=== PATIENT | male | born 1975 | race Caucasian/White ===

== ENCOUNTER 2016-10-11 13:59 | Inpatient (IN) | payer MEDICAID, OTHER ==
[~2016-10-11] VITALS: Ht 157.5 cm; Wt 94.5 kg
[~2016-10-11 13:59] MED LIST: ASPI-664 PO; ATOR40TA68 PO; LISI10TA2 PO; METO-429 PO; NIT4 SL; TICA90TA PO
[2016-10-11 14:01] VITALS: Ht 157.5 cm; Wt 94.5 kg
[2016-10-11] MEDS ORDERED: ASPIRIN 325 MG TAB PO STA (14:34)
[2016-10-11 14:55] LABS: WHITE BLOOD COUNT 7.4 10^3/ul (4.8-10.8)
[2016-10-11 14:56] LABS: BASOPHILS % 0.1 % (0.0-2.0); EOSINOPHILS # 0.1 10^3/ul (0.0-0.5); EOSINOPHILS % 1.6 % (0.0-7.0); LYMPHOCYTES # 2.2 10^3/ul (0.8-2.9); LYMPHOCYTES % 29.7 % (15.0-51.0); MEAN CORPUSCULAR HEMOGLOBIN 29.7 pg (29.0-33.0); MEAN CORPUSCULAR HGB CONC 34.1 g/dl (32.0-37.0); MEAN PLATELET VOLUME 10.7 fl (7.4-10.4); MONOCYTE # 0.7 10^3/ul (0.3-0.9); MONOCYTES % 8.8 % (0.0-11.0); NEUTROPHIL # 4.4 10^3/ul (1.6-7.5); NEUTROPHILS % 59.4 % (39.0-77.0); PLATELET COUNT 195 10^3/UL (140-415); RED BLOOD COUNT 4.71 10^6/ul (4.70-6.10); RED CELL DISTRIBUTION WIDTH 12.9 % (11.5-14.5)
[2016-10-11] MEDS ORDERED: LISI40TA9 PO (15:02)
[2016-10-11] MEDS ORDERED: ATOR40TA68 PO (15:02)
[2016-10-11] MEDS ORDERED: METO100T13 PO (15:03)
[2016-10-11] MEDS ORDERED: RANO10002 PO (15:03)
--- NOTE | 2016-10-11 15:03 | RADRPT ---
PROCEDURE: XR Chest. CLINICAL INDICATION: chest pain TECHNIQUE: Single frontal view of the chest was obtained COMPARISON: 09/13/15 FINDINGS: The heart and mediastinum are within normal limits. The lungs are clear. There is no pleural effusion or pneumothorax. RPTAT: AA IMPRESSION: No acute disease. .Brendan Walker MD, MD Date Time Electronically viewed and signed by .Brendan Walker MD, on 10/11/2016 15:03 .S/
[2016-10-11 15:14] LABS: ANION GAP 20 (8-16); BLOOD UREA NITROGEN 16 mg/dl (7-20); CALCIUM 9.5 mg/dl (8.4-10.2); CARBON DIOXIDE 24 mmol/L (21-31); CHLORIDE 102 mmol/L (97-110); CREATININE 0.88 mg/dl (0.61-1.24); GLUCOSE 97 mg/dl (70-220); INR 0.99; POTASSIUM 4.3 mmol/L (3.5-5.1); PROTIME 13.1 Sec (12.2-14.2); SODIUM 142 mmol/L (135-144)
[2016-10-11 15:15] LABS: PARTIAL THROMBOPLASTIN TIME 29.3 Sec (25.0-35.0)
[2016-10-11 15:26] LABS: TROPONIN-I < 0.012 ng/ml (0.00-0.12)
--- NOTE | 2016-10-11 15:38 | ERA ---
ER Documentation Chief Complaint Date/Time DATE: 10/11/16 TIME: 15:31 Chief Complaint Complains of chest pain Hx stent last year HPI This is a 40-year-old male with a past medical history of coronary artery disease and previous myocardial infarction status post catheterization and stenting approximately 1 year ago, hypertension, hyperlipidemia who is presenting with recurrence of chest pain. The patient reports that his pain feels exactly like his previous heart attack. It started yesterday evening after eating a barbecue chicken dinner. It has not remitted. It is a sharp left-sided chest pain radiating to the left arm. He has not had any lightheadedness or dizziness. He has not had any diaphoresis. He has had shortness of breath. The patient is on Brilinta for his stent. He has been taking this compliantly. The patient has not been sick recently. He denies any fever or chills. He denies any nausea or vomiting. He denies any abdominal pain. He has no focal deficits. ROS All systems reviewed and are negative except as per history of present illness. Medications Home Meds Active Scripts Ticagrelor* (Brilinta*) 90 Mg Tablet, 90 MG PO BID for 30 Days, #60 TAB Prov:DONNELL GONZALES MD 09/16/15 Aspirin* (Aspirin* EC) 81 Mg Tablet.dr, 81 MG PO DAILY for 30 Days, #30 Prov:DONNELL GONZALES MD 09/16/15 Reported Medications Ranolazine* (Ranexa*) 1,000 Mg Tab.sr.12h, 1000 MG PO Q12, TAB 10/11/16 Metoprolol Succinate* (Toprol XL*) 100 Mg Tab.sr.24h, 100 MG PO QHS, #30 TAB 10/11/16 Lisinopril* (Lisinopril*) 40 Mg Tablet, 40 MG PO DAILY, #30 TAB 10/11/16 Atorvastatin* (Atorvastatin*) 40 Mg Tablet, 40 MG PO QHS, #30 TAB 10/11/16 Discontinued Scripts Nitroglycerin* (Nitrostat*) 0.4 Mg Tab.subl, 1 TAB SL Q5M Y for ANGINA for 30 Days, #30 Prov:DONNELL GONZALES MD 09/16/15 Metoprolol Tartrate* (Lopressor*) 50 Mg Tab, 100 MG PO BID for 30 Days, #60 TAB Prov:DONNELL GONZALES MD 09/16/15 Lisinopril* (Lisinopril*) 10 Mg Tablet, 10 MG PO DAILY for 30 Days, #30 TAB Prov:DONNELL GONZALES MD 09/16/15 Atorvastatin* (Atorvastatin*) 40 Mg Tablet, 40 MG PO DAILY for 30 Days, #30 TAB Prov:DONNELL GONZALES MD 09/16/15 Allergies Allergies: Coded Allergies: No Known Allergy (Unverified , 10/11/16) PMhx/Soc History of Surgery: No (denies) Anesthesia Reaction: No Hx Neurological Disorder: No Hx Respiratory Disorders: No Hx Cardiac Disorders: Yes (Coronary artery disease, hypertension, hyperlipidemia, previous catheterization and stenting) Hx Psychiatric Problems: No Hx Miscellaneous Medical Probl: No (denies but stated he smokes 2 packs of cigarettes a day) Hx Alcohol Use: Yes (vodka occationally) Hx Substance Use: No Hx Tobacco Use: No Smoking Status: Heavy tobacco smoker FmHx Family History: No coronary disease, No diabetes Physical Exam Vitals Vital Signs Date Time Temp Pulse Resp B/P Pulse Ox O2 Delivery O2 Flow Rate FiO2 10/11/16 16:44 71 20 119/88 99 Room Air 10/11/16 14:46 Nasal Cannula 2 10/11/16 14:01 98.3 68 20 147/93 99 Physical Exam Const: No apparent distress Head: Atraumatic Eyes: Normal Conjunctiva ENT: Normal External Ears, Nose and Mouth. Neck: Full range of motion..~ No meningismus. Resp: Clear to auscultation bilaterally Cardio: Regular rate and rhythm, no murmurs Abd: Soft, non tender, non distended. Normal bowel sounds Skin: No petechiae or rashes Back: No midline or flank tenderness Ext: No cyanosis, or edema Neur: Awake and alert Psych: Normal Mood and Affect Result Diagram: 10/11/16 1440 10/11/16 1440 Results 24 hrs Laboratory Tests Test 10/11/16 14:40 White Blood Count 7.410^3/ul Red Blood Count 4.7110^6/ul Hemoglobin 14.0g/dl Hematocrit 41.0% Mean Corpuscular Volume 87.0fl Mean Corpuscular Hemoglobin 29.7pg Mean Corpuscular Hemoglobin Concent 34.1g/dl Red Cell Distribution Width 12.9% Platelet Count 16770^3/UL Mean Platelet Volume 10.7fl Neutrophils % 59.4% Lymphocytes % 29.7% Monocytes % 8.8% Eosinophils % 1.6% Basophils % 0.1% Nucleated Red Blood Cells % 0.0/100WBC Neutrophils # 4.410^3/ul Lymphocytes # 2.210^3/ul Monocytes # 0.710^3/ul Eosinophils # 0.110^3/ul Basophils # 0.010^3/ul Nucleated Red Blood Cells # 0.010^3/ul Prothrombin Time 13.1Sec Prothrombin Time Ratio 1.0 INR International Normalized Ratio 0.99 Activated Partial Thromboplast Time 29.3Sec Sodium Level 142mmol/L Potassium Level 4.3mmol/L Chloride Level 102mmol/L Carbon Dioxide Level 24mmol/L Anion Gap 20 Blood Urea Nitrogen 16mg/dl Creatinine 0.88mg/dl Glucose Level 97mg/dl Calcium Level 9.5mg/dl Troponin I < 0.012ng/ml Current Medications Medications (Trade) Dose Ordered Sig/Jaime Route PRN Reason Start Time Stop Time Status Last Admin Dose Admin Aspirin 325 mg 325 mg ONCE STAT PO 10/11/16 14:34 10/11/16 14:37 DC 10/11/16 14:55 Dextrose/Sodium Chloride (D5-NS) 1,000 ml @ 75 mls/hr [id number] IV 10/11/16 18:00 Ondansetron HCl (Zofran Inj) 4 mg ER BRIDGE PRN IV NAUSEA AND/OR VOMITING 10/11/16 18:00 10/12/16 17:59 Acetaminophen (Tylenol Tab) 650 mg ER BRIDGE PRN PO MILD PAIN/FEVER 10/11/16 18:00 10/12/16 17:59 Procedures/MDM The patient's presentation warrants a cardiac workup. I do have a high suspicion for a cardiac etiology given his current symptoms as well as the fact that he presented similarly one year ago indicates that required stenting at that time. Patient's blood work was obtained and reviewed. The patient CBC, BMP, troponin and INR were unremarkable. The patient's chest x-ray demonstrated no active disease in the chest. There are no signs of pneumothorax, no consolidation or opacity concerning for pneumonia, no pleural effusion, no obvious signs of pulmonary edema. The patient has a normal cardiomediastinal silhouette. EKG read by me: Rate/Rhythm: Regular rate and rhythm at a rate of 69 Intervals: Normal Access: Normal Impression: No ST or T-wave changes concerning for an acute STEMI. There are nonspecific repolarization abnormalities. No evidence of acute ischemia or arrhythmia I would place his heart score at 5 for risk factors, high suspicion and nonspecific repolarization abnormalities. This would place him at moderate risk , which requires admission for a repeat cardiac workup. The patient was given aspirin in the emergency department. The patient was evaluated by his machinist first class in the emergency department today. The machinist first class reports that he has had a recent positive stress test and needs to have a catheterization performed. At this time, I do not feel that the patient is stable for transfer given the elevated risk of decompensation en route. Departure Condition: BARBARA Crawford MD Oct 11, 2016 15:38
--- NOTE | 2016-10-11 17:46 | CONS ---
Date/Time of Note Date/Time of Note DATE: 10/11/16 TIME: 17:38 Assessment/Plan Assessment/Plan Chief Complaint/Hosp Course 1. ACS 2. HTN 3. CAD 4. HX PCI LAD 5. Known multivessel CAD and abnormal stress test but now with recurrent angina 6. dyslipidemia 7.smoker 8. obesity Recommendations: Continue home medication including aspirin and Brilinta statin and beta- blockers. Rule out for myocardial infarction with serial cardiac enzyme Echocardiogram will be checked in the morning Plan for left heart catheterization coronary angiogram possible percutaneous coronary intervention tomorrow. Risks benefits alternatives of procedure discussed with the patient and his in detail. Risks include not limited to infection vascular complication bleeding complications MS stroke arrhythmia at that renal failure etc. discussed with patient and his in detail. Patient consented to procedure. Thank you for his referral I will continue to follow along with you. Problems: Consultation Date/Type/Reason Admit Date/Time Date of Consultation: Oct 11, 2016 Type of Consultation: INTERVENTIONAL CARDIOLOGY Reason for Consultation CHEST PAIN Thank you for this referral This is a pleasant 38-year-old gentleman so coronary artery disease status post PCI of the LAD diffuse multivessel coronary artery disease, smoking, hypertension who presented to the emergency room with complaint of chest pain. Patient has had PCI with LAD a few months ago and had done well. However recently has had increasing exertional chest pain pressure to the left side. She had a stress test done by myself in the office a few couple of weeks ago which was abnormal. He has been placed on appropriate medical therapy including Ranexa beta-jose angel and has been compliant with his medications. With the medication his pain has improved however he still gets chest pain upon exertion. Today the pain got worse he decided to come to the emergency room. He has been in the waiting care to be scheduled for a coronary angiogram once authorization is obtained. At this point he is chest pain-free. Discussed with his his old records were reviewed.. Medication: Aspirin 81 mg p.o. daily, Brilinta 90 mg p.o. twice daily, Toprol-XL , Lipitor, Ranexa 1000 mg p.o. twice daily Social history patient still smokes. Still states that he quit a couple of weeks now Family history positive early coronary artery disease Allergies no reported drug allergies Past medical history 1. Coronary artery disease status post PCI of his LAD known diffuse multivessel coronary artery disease #2 hypertension 3. Dyslipidemia 4. Smoking 5. Obesity Past surgical history: On 09/15/2015 he underwent PCI of the LAD. His coronary angiogram showed: 1. Left main coronary is a large vessel, appeared to be normal. 2. Left anterior descending artery proximally is a very large vessel, has about 50% stenosis. Multiple diagonals. At the mid-level there is a subtotal 99% lesion. After successful PTCA stent of this lesion, there was no significant residual stenosis left. Diagonal also have about 70% stenosis proximally into the ostium. The left circumflex artery is a large codominant vessel. Obtuse marginal is aneurysmal vessel with about 50% stenosis. 3. Right coronary artery is a moderate-sized vessel. It is codominant, it gives to PDA. It is diffusely diseased and has probably up to 70% lesion, but it has very diffuse disease, multiple areas. Review of system: He denies all except for above-mentioned. Social History Smoking Status: Heavy tobacco smoker Exam/Review of Systems Vital Signs Vitals Vital Signs Date Time Temp Pulse Resp B/P Pulse Ox O2 Delivery O2 Flow Rate FiO2 10/11/16 14:46 Nasal Cannula 2 10/11/16 14:01 98.3 68 20 147/93 99 Exam General: no acute distress HEENT: NC/AT. pupils are equal. round. NECK: NO JVD. no stridor. CV: RRR. systolic murmur; no gallop or rubs. PULM: no wheezing or rhonchi. GI: SOFT, NT, ND, no rebound or guarding . obese Extremity: trace B/L LE edema. no clubbing. neuro: awake and alert, OX3. Psych: calm and pleasant rectal: deferred : normal EKG shows normal sinus rhythm normal ECG Results Result Diagram: 10/11/16 1440 10/11/16 1440 Results 24 hrs Laboratory Tests Test 10/11/16 14:40 White Blood Count 7.4 # Red Blood Count 4.71 Hemoglobin 14.0 Hematocrit 41.0 L Mean Corpuscular Volume 87.0 Mean Corpuscular Hemoglobin 29.7 Mean Corpuscular Hemoglobin Concent 34.1 Red Cell Distribution Width 12.9 Platelet Count 195 Mean Platelet Volume 10.7 #H Neutrophils % 59.4 Lymphocytes % 29.7 Monocytes % 8.8 Eosinophils % 1.6 Basophils % 0.1 Nucleated Red Blood Cells % 0.0 Neutrophils # 4.4 Lymphocytes # 2.2 Monocytes # 0.7 Eosinophils # 0.1 Basophils # 0.0 Nucleated Red Blood Cells # 0.0 Prothrombin Time 13.1 Prothrombin Time Ratio 1.0 INR International Normalized Ratio 0.99 Activated Partial Thromboplast Time 29.3 Sodium Level 142 Potassium Level 4.3 Chloride Level 102 Carbon Dioxide Level 24 Anion Gap 20 H Blood Urea Nitrogen 16 Creatinine 0.88 Glucose Level 97 Calcium Level 9.5 Troponin I < 0.012 JULIENNE MITCHELL MD Oct 11, 2016 17:46
[2016-10-11] MEDS ORDERED: ONDANSETRON 4 MG INJ IV PRN (18:00)
[2016-10-11] MEDS ORDERED: ACETAMINOPHEN 325 MG TAB PO PRN ×2 (18:00→18:30)
--- NOTE | 2016-10-11 18:27 | HP ---
Date/Time of Note Date/Time of Note DATE: 10/11/16 TIME: 18:23 Assessment/Plan VTE Prophylaxis VTE Prophylaxis Intervention: SCD's Lines/Catheters IV Catheter Type (from Nrsg): Saline Lock Assessment/Plan Assessment/Plan 40 yo M with hx CAD sp PCI presents with chest pain in setting of recent + stress test. Concern for unstable angina plan cont tele monitoring, cardiac cath in AM cont home meds with DAPT, bb, acei, statin, and Ranexa IVFs as per cardiology check a1c check nocturnal pulse ox as CARINE screen pt congratulated on having already quit smoking DVT prophx dispo as per cardiology HPI/ROS Admit Date/Time Admit Date/Time Hx of Present Illness CC chest pain HPI 40 yo M with pmhx CAD sp PCI within the past 12 mos, tobacco abuse, snoring, obesity presents with 1 day of chest pain. Since presentation to the ER pt already seen by his broadcast designer who stated he will be performing diagnostic angiogram in the AM as pt with recent hx of + stress test. PMH/Family/Social Past Medical History CAD sp PCI obesity tobacco abuse Social History , quit smoking 2 weeks ago Smoking Status: Heavy tobacco smoker Exam/Review of Systems Vital Signs Vitals Vital Signs Date Time Temp Pulse Resp B/P Pulse Ox O2 Delivery O2 Flow Rate FiO2 10/11/16 16:44 71 20 119/88 99 Room Air 10/11/16 14:46 2 10/11/16 14:01 98.3 Exam Exam nad, laying in bed MMM EOMI rrr no mrg lungs clear abd soft no rashes no le edema labs and imaging reviewed Labs Result Diagram: 10/11/16 1440 10/11/16 1440 Medications Medications Current Medications Dextrose/Sodium Chloride (D5-NS) 1,000 ml @ 75 mls/hr [id number] IV ; Start at 18:00 Aspirin (Aspirin) 81 mg DAILY PO ; Start 10/12/16 at 09:00; Status UNV Acetaminophen (Tylenol Tab) 650 mg Q6H PRN PO PAIN LEVEL 1-3 OR FEVER; Start at 18:30; Status UNV Acetaminophen/ Hydrocodone Bitart ([place] (5/325)) 1 tab Q6H PRN PO PAIN LEVEL 4 -6; Start 10/11/16 at 18:30; Status UNV Morphine Sulfate (morphine) 2 mg Q4H PRN IV PAIN LEVEL 7-10; Start 10/11/16 at 18:30; Status UNV Docusate Sodium (Colace) 100 mg Q12H PRN PO CONSTIPATION; Start 10/11/16 at 18: 30; Status UNV Magnesium Hydroxide (Milk Of Mag) 30 ml DAILY PRN PO CONSTIPATION; Start at 18:30; Status UNV Bisacodyl (Dulcolax) 5 mg DAILY PRN PO CONSTIPATION; Start 10/11/16 at 18:30; Status UNV Enoxaparin Sodium (Lovenox) 40 mg DAILY SC ; Start 10/12/16 at 09:00; Status UNV CHRIS HENRY MD Oct 11, 2016 18:27
[2016-10-11] MEDS ORDERED: BISACODYL (EC) 5 MG TAB PO PRN (18:30)
[2016-10-11] MEDS ORDERED: NACL 0.9% 3 ML SYG IV SCH (18:30)
[2016-10-11] MEDS ORDERED: morphine 2 MG INJ IV PRN (18:30)
[2016-10-11] MEDS ORDERED: HYDROCODONE/APAP (5/325) TAB PO PRN (18:30)
[2016-10-11] MEDS ORDERED: MAGNESIUM HYDROXIDE 30ML CUP PO PRN (18:30)
[2016-10-11] MEDS ORDERED: DOCUSATE SODIUM 100 MG CAP PO PRN (18:30)
[2016-10-11 20:00] VITALS: BP 123/85; RESP 15
[2016-10-11 20:40] VITALS: PULSE 64
[2016-10-11 20:43] LABS: CREATINE KINASE 96 IU/L (23-200)
[2016-10-11 20:58] LABS: CK-MB 0.89 ng/ml (0.0-2.4); TROPONIN-I < 0.012 ng/ml (0.00-0.12)
[2016-10-11] MEDS: METOPROLOL (XL) 100 MG TAB PO SCH (21:00)
[2016-10-11] MEDS: TICAGRELOR 90 MG TABLET PO SCH (21:00)
[2016-10-11] MEDS: RANOLAZINE (SR) 500 MG TAB PO SCH (21:24)
[2016-10-11] MEDS: ATORVASTATIN 40 MG TAB PO SCH (21:24)
[2016-10-11] MEDS: DEXTROSE 5%-0.9% NACL 1,000 ML IV SCH (21:28)
[2016-10-12] VITALS (40 sets, daily range): BP systolic 98–129; BP diastolic 64–95; PULSE 45–73; RESP 7–25
[2016-10-12 03:57] LABS: CREATINE KINASE 74 IU/L (23-200)
[2016-10-12 04:39] LABS: CK-MB 0.72 ng/ml (0.0-2.4); TROPONIN-I < 0.012 ng/ml (0.00-0.12)
[2016-10-12] MEDS: DEXTROSE 5%-0.9% NACL 1,000 ML IV SCH (07:16)
[2016-10-12] MEDS: RANOLAZINE (SR) 500 MG TAB PO SCH ×3 (08:36→21:16)
[2016-10-12] MEDS: TICAGRELOR 90 MG TABLET PO SCH ×2 (08:37→21:18)
[2016-10-12] MEDS: ASPIRIN 81 MG TAB PO SCH (08:38)
[2016-10-12] MEDS: ENOXAPARIN 40 MG/0.4 ML SYG SC SCH (08:38)
[2016-10-12] MEDS: LISINOPRIL 20 MG TAB PO SCH ×2 (08:38→09:00)
[2016-10-12] MEDS ORDERED: ASPIRIN (EC) 81 MG TAB PO SCH (09:00)
--- NOTE | 2016-10-12 10:25 | RADRPT ---
Echocardiogram Report Patient Name: YAS CROWELL Gender: Male Date: 1975 Study Date: 12-Oct-2016 Red Lead Burner: Karen Garcia [facility] Location: [id number] Ref. Physician: JULIENNE HUANG Quality: Good Procedures: Transthoracic echocardiogram with complete 2D, M-Mode, and doppler examination. Indications: Acute Coronary Syndrome. 2D/M Mode Doppler Measurement Value Normal Ranges Measurement Value Normal Ranges LVIDd 2D 4.8 3.5 - 5.6 cm AV Peak Tuan 1.5 m/sec LVIDs 2D 3.1 2.1 - 4.1 cm AV Peak PG 9.0 mmHg FS 2D 36.0 % LVOT Peak Tuan 1.2 m/sec LVPWd 2D 1.1 0.6 - 1.1 cm LVOT Peak PG 5.0 mmHg IVSd 2D 1.0 0.6 - 1.1 cm MV E Peak Tuan 1.3 m/sec IVS/LVPW 2D 0.9 MV A Peak Tuan 0.6 m/sec AoR Diam 2D 3.5 2.0 - 3.7 cm MV E/A 2.2 LA/Ao 2D 1 0 - 1 MV Decel Time 165 msec EDV 2D 111.0 cm3 MV E/A 2.2 ESV 2D 29.2 cm3 TR Peak Tuan 2.7 m/sec LA Dimen 2D 3.9 2.3 - 4.0 cm TR Peak PG 29.0 mmHg RVSP 39.0 mmHg Findings Left Ventricle: Normal left ventricular systolic function. Normal left ventricular cavity size. Normal left ventricular wall thickness. Ejection fraction is visually estimated at 55 - 60 %. Tissue Doppler/Mitral Doppler indices are consistent with impaired relaxation (Stage I diastolic dysfunction). Right Ventricle: Normal right ventricular size. Normal right ventricular systolic function. Left Atrium: The left atrium is normal in size. Right Atrium: The right atrium is normal in size. Mitral Valve: Mitral valve leaflets appear mildly thickened. Mild mitral annular calcification. Mild mitral valve regurgitation. Aortic Valve: Normal appearance of the aortic valve. No significant aortic stenosis or insufficiency. Tricuspid Valve: Normal appearance of the tricuspid valve. Estimated peak PA systolic pressure 32 mmHg. There is mild tricuspid regurgitation. Pulmonic Valve: Pulmonic valve not well visualized. Pericardium: Normal pericardium with no significant pericardial effusion. Aorta: Normal aortic root. IVC: Normal size and normal respiratory collapse consistent with normal right atrial pressure. Conclusions 1.Normal left ventricular systolic function. Normal left ventricular cavity size. Normal left ventricular wall thickness. Ejection fraction is visually estimated at 55 - 60 %. Tissue Doppler/Mitral Doppler indices are consistent with impaired relaxation (Stage I diastolic dysfunction). 2.Mitral valve leaflets appear mildly thickened. Mild mitral annular calcification. Mild mitral valve regurgitation. 3.Normal appearance of the aortic valve. No significant aortic stenosis or insufficiency. 4.Normal appearance of the tricuspid valve. Estimated peak PA systolic pressure 32 mmHg. There is mild tricuspid regurgitation. Electronically Signed By: Julienne Huang 12-Oct-2016 10:24:46 -0700 Patient Name: YAS CROWELL Study Date: 12-Oct-2016 [id number]
[2016-10-12 10:44] LABS: BASOPHILS % 0.1 % (0.0-2.0); EOSINOPHILS # 0.1 10^3/ul (0.0-0.5); EOSINOPHILS % 1.3 % (0.0-7.0); HEMATOCRIT 39.2 % (42.0-52.0); HEMOGLOBIN 13.1 g/dl (14.0-18.0); LYMPHOCYTES % 27.7 % (15.0-51.0); MEAN CORPUSCULAR HEMOGLOBIN 29.5 pg (29.0-33.0); MEAN CORPUSCULAR HGB CONC 33.4 g/dl (32.0-37.0); MEAN CORPUSCULAR VOLUME 88.3 fl (82.0-101.0); MEAN PLATELET VOLUME 10.9 fl (7.4-10.4); MONOCYTE # 0.6 10^3/ul (0.3-0.9); MONOCYTES % 7.9 % (0.0-11.0); NEUTROPHIL # 4.4 10^3/ul (1.6-7.5); NEUTROPHILS % 62.4 % (39.0-77.0); PLATELET COUNT 179 10^3/UL (140-415); RED BLOOD COUNT 4.44 10^6/ul (4.70-6.10); RED CELL DISTRIBUTION WIDTH 12.8 % (11.5-14.5); WHITE BLOOD COUNT 7.1 10^3/ul (4.8-10.8)
[2016-10-12 11:06] LABS: ALBUMIN 3.8 g/dl (3.3-4.9); ALBUMIN/GLOBULIN RATIO 1.8; BILIRUBIN,INDIRECT 0.4 mg/dl (0-1.1); BILIRUBIN,TOTAL 0.4 mg/dl (0.2-1.3); CALCIUM 9.2 mg/dl (8.4-10.2); CHOL/HDL RATIO 3.5 RATIO; CREATININE 0.95 mg/dl (0.61-1.24); MAGNESIUM 1.9 mg/dl (1.7-2.5); POTASSIUM 4.5 mmol/L (3.5-5.1); TOTAL PROTEIN 5.9 g/dl (6.1-8.1)
[2016-10-12 11:07] LABS: CREATINE KINASE 63 IU/L (23-200)
[2016-10-12 11:09] LABS: INR 1.02; PROTIME 13.4 Sec (12.2-14.2)
[2016-10-12 11:28] LABS: CK-MB 0.53 ng/ml (0.0-2.4); TROPONIN-I < 0.012 ng/ml (0.00-0.12)
[2016-10-12 11:37] LABS: THYROID STIMULATING HORMONE 1.33 MIU/L (0.465-4.680)
[2016-10-12 11:41] LABS: CHOL/HDL RATIO 3.5 RATIO
[2016-10-12] MEDS ORDERED: IODIXANOL LOCM 100 ML BTL ONE (12:00)
[2016-10-12] MEDS ORDERED: MIDAZOLAM 1 MG/ML 2 ML INJ ONE (12:00)
[2016-10-12] MEDS ORDERED: FENTAnyl 50 MCG/ML VIAL ONE ×2 (12:01→13:39)
[2016-10-12] MEDS ORDERED: NITROGLYCERIN (IC) 100 MCG/ML INJ ONE (12:04)
[2016-10-12] MEDS ORDERED: IOHEXOL 350MG/ML 50 ML BTL ONE (12:04)
[2016-10-12] MEDS ORDERED: BIVALIRUDIN 250MG /NS 50 ML 50 ML IVPB ONE (12:04)
[2016-10-12] MEDS ORDERED: LIDOCAINE 1% (MDV) 20 ML INJ ONE (12:04)
[2016-10-12] MEDS ORDERED: HEPARIN 1000 UNITS/ML 10 ML INJ ONE (12:36)
[2016-10-12] MEDS ORDERED: VERAPAMIL 5 MG INJ ONE (12:36)
--- NOTE | 2016-10-12 14:11 | OPR ---
Date/Time of Note Date/Time of Note DATE: 10/12/16 TIME: 14:03 Operative Report Procedure Date: Oct 12, 2016 Operative\Procedure Findings Sausage Maker: Julienne Huang MD Indication: ACS. recurrent chest pain and abnormal stress echo Procure performed: #1 left heart catheterization and selective right and left coronary angiogram. #2 Right femoral angiogram and closure using a perclose device 3. Successful PTCA and stenting of proximal LAD using a 4X16 mm synergy NEGAR 4. Successful PTCA of diagonal from 100% --> 0% using a 2.0x15 mm balloon 4. Moderate sedation for more than 90 minutes Findings: 1. Left main: is normal and birfurcates to LAD & LCX. 2. LAD: is large and aneurysmal. it has 80-90% stenosis at proximal LAD ( ----> 0% post PCI). and 20 % instent stenosis at mid LAD. first diagonal is small and 100% occluded ---> 0% post PTCA. 2nd and 3rd diagonal have less than 50% stenosis. 3. Left circumflex artery: is Co-dominant. it has 60-70 % stenosis at OM. It is very aneurysmal though. 4. RCA: is CO-dominant. it has diffuse disease up to 70% stenosis at mid to distal level. No significant change was noted compared to the previous angiogram or year ago. 5. LVEDP is 17 with non significant gradient across the aortic valve. Procedure in detail: Written informed consent with obtained after risks benefits and alternatives discussed with the patient in detail. risks including but not limited to risk of infection vascular complications, bleeding complications, SC stroke arrhythmia renal failure at even were discussed with the patient in detail. Patient was brought into the cardiac laborer aquatic life and placed in supine position. Right and left groin area was prepped and draped in regular sterile fashion and then he was in anesthetized using 1% lidocaine. Right femoral artery was cannulated and using modified seldinger technique a 6 [place] sheath was placed in the right femoral artery. Right femoral angiogram was performed. JL4 catheter was advanced and engaged into the left main coronary artery and angiographic view was obtained. The JR4 catheter was advanced and engaged right coronary artery angiographic view was obtained. Pigtail was advanced to engage the left ventricle hemodynamics as recorded by pullback aortic pressure was measured. At this time we decided to perform PCI of the LAD. A XB LAD 4 guiding head was advanced to engage the left anterior descending artery. BMW wire was used and advanced across the lesion and placed distal to the artery. Another BMW wire were used with a support of the balloon was able to cross the diagonal lesion and placed in distal diagonal. Then I used a 2.0 x 50 mm balloon angioplasty of diagonal lesion was performed. I used a 3 x 12 mm noncompliant balloon which was placed across the LAD lesion and predilated the vessel. Then I used a 4.0 x 16 mm Synergy drug-eluting stent which was placed across the lesion and deployed at 16 [place]. Finally a 4.5 x 8 mm noncompliant balloon was used and postdilated the stent and up to 16 [place]. Final angiographic view was obtained which showed JENNIFER-3 flow no evidence of dissection and no significant residual stenosis at the site of the stent. perclose was successfully deployed. Patient tolerated the procedure well with no complication. Patient was transferred to ICU in stable condition. Conclusions: 1. Successful PTCA stenting of the proximal left anterior descending artery from 90% stenosis to no significant residual stenosis using a 4.0 x 16 mm Synergy drug-eluting stent. 2. Successful PTCA of diagonal 400% occlusion to no significant residual stenosis using a 2.0 x 50 mm balloon. Recommendations: Aggressive medical therapy. aspirin indefinitely dual antiplatlet therapy with Brilinta and aspirin ICU care overnight. JULIENNE HUANG MD Oct 12, 2016 14:11
--- NOTE | 2016-10-12 14:23 | CONS ---
Date/Time of Note Date/Time of Note DATE: 10/12/16 TIME: 14:21 Consult Date/Type/Reason Admit Date/Time Oct 11, 2016 at 17:50 Initial Consult Date 10/11/16 Type of Consultation: INTERVENTIONAL CARDIOLOGY Subjective Discussed with the staff and discussed with Dr. Yi. Patient with no chest pain pressure overnight. Underwent diagnostic angiography and PCI of his LAD by myself. Has some groin discomfort but no active bleeding. OBJECTIVE: General: no acute distress HEENT: NC/AT. pupils are equal. round. NECK: NO JVD. no stridor. CV: RRR. systolic murmur; no gallop or rubs. PULM: no wheezing or rhonchi. GI: SOFT, NT, ND, no rebound or guarding . obese Extremity: trace B/L LE edema. no clubbing. neuro: awake and alert, OX3. Psych: calm and pleasant rectal: deferred : normal Objective Vital Signs Date Time Temp Pulse Resp B/P Pulse Ox O2 Delivery O2 Flow Rate FiO2 10/12/16 12:24 73 10/12/16 07:13 98.5 17 107/66 97 10/11/16 16:44 Room Air 10/11/16 14:46 2 Results/Medications Result Diagram: 10/12/16 1005 10/12/16 1005 Results 24 hrs Laboratory Tests Test 10/11/16 14:40 10/11/16 19:56 10/12/16 02:35 10/12/16 10:05 White Blood Count 7.4 # 7.1 Red Blood Count 4.71 4.44 L Hemoglobin 14.0 13.1 L Hematocrit 41.0 L 39.2 L Mean Corpuscular Volume 87.0 88.3 Mean Corpuscular Hemoglobin 29.7 29.5 Mean Corpuscular Hemoglobin Concent 34.1 33.4 Red Cell Distribution Width 12.9 12.8 Platelet Count 195 179 Mean Platelet Volume 10.7 #H 10.9 H Neutrophils % 59.4 62.4 Lymphocytes % 29.7 27.7 Monocytes % 8.8 7.9 Eosinophils % 1.6 1.3 Basophils % 0.1 0.1 Nucleated Red Blood Cells % 0.0 0.0 Neutrophils # 4.4 4.4 Lymphocytes # 2.2 2.0 Monocytes # 0.7 0.6 Eosinophils # 0.1 0.1 Basophils # 0.0 0.0 Nucleated Red Blood Cells # 0.0 0.0 Prothrombin Time 13.1 13.4 Prothrombin Time Ratio 1.0 1.0 INR International Normalized Ratio 0.99 1.02 Activated Partial Thromboplast Time 29.3 Sodium Level 142 145 H Potassium Level 4.3 4.5 Chloride Level 102 103 Carbon Dioxide Level 24 30 Anion Gap 20 H 17 H Blood Urea Nitrogen 16 18 Creatinine 0.88 0.95 Glucose Level 97 103 Hemoglobin A1c 5.4 Calcium Level 9.5 9.2 Troponin I < 0.012 < 0.012 < 0.012 < 0.012 Creatine Kinase 96 74 63 Creatine Kinase Index 0.9 1.0 0.8 Creatinine Kinase MB (Mass) 0.89 0.72 0.53 Magnesium Level 1.9 Total Bilirubin 0.4 Direct Bilirubin 0.00 Indirect Bilirubin 0.4 Aspartate Amino Transf (AST/SGOT) 17 Alanine Aminotransferase (ALT/SGPT) 34 Alkaline Phosphatase 37 L B-Type Natriuretic Peptide 69 Total Protein 5.9 L Albumin 3.8 Globulin 2.10 Albumin/Globulin Ratio 1.80 Triglycerides Level 100 Cholesterol Level 112 LDL Cholesterol, Calculated 60 HDL Cholesterol 32 Cholesterol/HDL Ratio 3.5 Thyroid Stimulating Hormone (TSH) 1.330 Free Thyroxine 0.97 Medications Current Medications Aspirin (Aspirin) 81 mg DAILY PO Last administered on 10/12/16t 08:38; Admin Dose 81 MG; Start 10/12/16 at 09:00 Acetaminophen (Tylenol Tab) 650 mg Q6H PRN PO PAIN LEVEL 1-3 OR FEVER; Start at 18:30 Acetaminophen/ Hydrocodone Bitart ([place] (5/325)) 1 tab Q6H PRN PO PAIN LEVEL 4 -6; Start 10/11/16 at 18:30 Morphine Sulfate (morphine) 2 mg Q4H PRN IV PAIN LEVEL 7-10; Start 10/11/16 at 18:30 Docusate Sodium (Colace) 100 mg Q12H PRN PO CONSTIPATION; Start 10/11/16 at 18: 30 Magnesium Hydroxide (Milk Of Mag) 30 ml DAILY PRN PO CONSTIPATION; Start at 18:30 Bisacodyl (Dulcolax) 5 mg DAILY PRN PO CONSTIPATION; Start 10/11/16 at 18:30 Enoxaparin Sodium (Lovenox) 40 mg DAILY SC ; Start 10/12/16 at 09:00 Atorvastatin Calcium (Lipitor) 40 mg QHS PO Last administered on 10/11/16 21:24 ; Admin Dose 40 MG; Start 10/11/16 at 21:00 Lisinopril (Zestril) 40 mg DAILY PO ; Start 10/12/16 at 09:00 Metoprolol Succinate (Toprol Xl) 100 mg QHS PO ; Start 10/11/16 at 21:00 Ranolazine (Ranexa) 1,000 mg Q12 PO Last administered on 10/11/16 21:24; Admin Dose 1,000 MG; Start 10/11/16 at 21:00 Ticagrelor (Brilinta) 90 mg BID PO Last administered on 10/12/16 08:37; Admin Dose 90 MG; Start 10/11/16 at 21:00 Assessment/Plan Chief Complaint/Hosp Course 1. ACS: S/P PCI LAD, PTCA diagonal 2. HTN 3. CAD 4. HX PCI LAD 5. Known multivessel CAD and abnormal stress test but now with recurrent angina 6. dyslipidemia 7.smoker 8. obesity Recommendations: Continue current medication including aspirin and Brilinta statin and beta- blockers. ICU monitoring pos PCI. dc planning tomorrow if stable STOP SMOKING Thank you for his referral I will continue to follow along with you. Problems: JULIENNE MITCHELL MD Oct 12, 2016 14:23
--- NOTE | 2016-10-12 18:00 | PN ---
Date/Time of Note Date/Time of Note DATE: 10/12/16 TIME: 17:59 Assessment/Plan VTE Prophylaxis VTE Prophylaxis Intervention: SCD's Lines/Catheters IV Catheter Type (from Nrsg): Saline Lock Assessment/Plan Assessment/Plan 40 yo M with hx CAD sp PCI presents with chest pain in setting of recent + stress test. Concern for unstable angina. Pt now sp cardiac cath earlier today with PCI x 2 plan ICU monitoring as per cards cont home meds with DAPT, bb, acei, statin, and Ranexa IVFs as per cardiology nocturnal pulse ox with SO2>90%. Consider formal sleep screen as outpatient pt congratulated on having already quit smoking again DVT prophx dispo as per cardiology Subjective 24 Hr Interval Summary Free Text/Dictation Pt seen prior to his cardiac cath. No chest pain. Exam/Review of Systems Vital Signs Vitals Vital Signs Date Time Temp Pulse Resp B/P Pulse Ox O2 Delivery O2 Flow Rate FiO2 10/12/16 17:36 64 13 123/81 97 10/12/16 17:16 Room Air 10/12/16 14:16 98.0 10/11/16 14:46 2 Exam nad, laying in bed no mrg lungs clear abd soft no rashes Results Result Diagram: 10/12/16 1005 10/12/16 1005 Results 24 hrs Laboratory Tests Test 10/11/16 19:56 10/12/16 02:35 10/12/16 10:05 Creatine Kinase 96 74 63 Creatine Kinase Index 0.9 1.0 0.8 Creatinine Kinase MB (Mass) 0.89 0.72 0.53 Troponin I < 0.012 < 0.012 < 0.012 White Blood Count 7.1 Red Blood Count 4.44 L Hemoglobin 13.1 L Hematocrit 39.2 L Mean Corpuscular Volume 88.3 Mean Corpuscular Hemoglobin 29.5 Mean Corpuscular Hemoglobin Concent 33.4 Red Cell Distribution Width 12.8 Platelet Count 179 Mean Platelet Volume 10.9 H Neutrophils % 62.4 Lymphocytes % 27.7 Monocytes % 7.9 Eosinophils % 1.3 Basophils % 0.1 Nucleated Red Blood Cells % 0.0 Neutrophils # 4.4 Lymphocytes # 2.0 Monocytes # 0.6 Eosinophils # 0.1 Basophils # 0.0 Nucleated Red Blood Cells # 0.0 Prothrombin Time 13.4 Prothrombin Time Ratio 1.0 INR International Normalized Ratio 1.02 Sodium Level 145 H Potassium Level 4.5 Chloride Level 103 Carbon Dioxide Level 30 Anion Gap 17 H Blood Urea Nitrogen 18 Creatinine 0.95 Glucose Level 103 Calcium Level 9.2 Magnesium Level 1.9 Total Bilirubin 0.4 Direct Bilirubin 0.00 Indirect Bilirubin 0.4 Aspartate Amino Transf (AST/SGOT) 17 Alanine Aminotransferase (ALT/SGPT) 34 Alkaline Phosphatase 37 L B-Type Natriuretic Peptide 69 Total Protein 5.9 L Albumin 3.8 Globulin 2.10 Albumin/Globulin Ratio 1.80 Triglycerides Level 100 Cholesterol Level 112 LDL Cholesterol, Calculated 60 HDL Cholesterol 32 Cholesterol/HDL Ratio 3.5 Thyroid Stimulating Hormone (TSH) 1.330 Free Thyroxine 0.97 Medications Medications Current Medications Aspirin (Aspirin) 81 mg DAILY PO Last administered on 10/12/16 08:38; Admin Dose 81 MG; Start 10/12/16 at 09:00 Acetaminophen (Tylenol Tab) 650 mg Q6H PRN PO PAIN LEVEL 1-3 OR FEVER; Start at 18:30 Acetaminophen/ Hydrocodone Bitart ([place] (5/325)) 1 tab Q6H PRN PO PAIN LEVEL 4 -6; Start 10/11/16 at 18:30 Morphine Sulfate (morphine) 2 mg Q4H PRN IV PAIN LEVEL 7-10; Start 10/11/16 at 18:30 Docusate Sodium (Colace) 100 mg Q12H PRN PO CONSTIPATION; Start 10/11/16 at 18: 30 Magnesium Hydroxide (Milk Of Mag) 30 ml DAILY PRN PO CONSTIPATION; Start at 18:30 Bisacodyl (Dulcolax) 5 mg DAILY PRN PO CONSTIPATION; Start 10/11/16 at 18:30 Enoxaparin Sodium (Lovenox) 40 mg DAILY SC ; Start 10/12/16 at 09:00 Atorvastatin Calcium (Lipitor) 40 mg QHS PO Last administered on 10/11/16 21:24 ; Admin Dose 40 MG; Start 10/11/16 at 21:00 Lisinopril (Zestril) 40 mg DAILY PO ; Start 10/12/16 at 09:00 Metoprolol Succinate (Toprol Xl) 100 mg QHS PO ; Start 10/11/16 at 21:00 Ranolazine (Ranexa) 1,000 mg Q12 PO Last administered on 10/11/16 21:24; Admin Dose 1,000 MG; Start 10/11/16 at 21:00 Ticagrelor (Brilinta) 90 mg BID PO Last administered on 10/12/16 08:37; Admin Dose 90 MG; Start 10/11/16 at 21:00 CHRIS HENRY MD Oct 12, 2016 18:00
[2016-10-12] MEDS: ATORVASTATIN 40 MG TAB PO SCH (21:16)
[2016-10-12] MEDS: METOPROLOL (XL) 100 MG TAB PO SCH (21:16)
[2016-10-13] VITALS (11 sets, daily range): BP systolic 99–142; BP diastolic 79–105; PULSE 49–63; RESP 10–21
[2016-10-13 05:42] LABS: BASOPHILS % 0.1 % (0.0-2.0); EOSINOPHILS # 0.1 10^3/ul (0.0-0.5); EOSINOPHILS % 0.9 % (0.0-7.0); HEMATOCRIT 38.9 % (42.0-52.0); HEMOGLOBIN 12.8 g/dl (14.0-18.0); LYMPHOCYTES # 1.9 10^3/ul (0.8-2.9); LYMPHOCYTES % 19.4 % (15.0-51.0); MEAN CORPUSCULAR HEMOGLOBIN 28.8 pg (29.0-33.0); MEAN CORPUSCULAR HGB CONC 32.9 g/dl (32.0-37.0); MEAN CORPUSCULAR VOLUME 87.4 fl (82.0-101.0); MEAN PLATELET VOLUME 10.9 fl (7.4-10.4); MONOCYTE # 0.7 10^3/ul (0.3-0.9); MONOCYTES % 7.8 % (0.0-11.0); NEUTROPHIL # 6.8 10^3/ul (1.6-7.5); NEUTROPHILS % 71.4 % (39.0-77.0); PLATELET COUNT 171 10^3/UL (140-415); RED BLOOD COUNT 4.45 10^6/ul (4.70-6.10); RED CELL DISTRIBUTION WIDTH 13.3 % (11.5-14.5); WHITE BLOOD COUNT 9.5 10^3/ul (4.8-10.8)
[2016-10-13 06:48] LABS: ALBUMIN 3.8 g/dl (3.3-4.9); ALBUMIN/GLOBULIN RATIO 1.58; BILIRUBIN,INDIRECT 0.4 mg/dl (0-1.1); BILIRUBIN,TOTAL 0.4 mg/dl (0.2-1.3); CALCIUM 8.9 mg/dl (8.4-10.2); CREATININE 0.88 mg/dl (0.61-1.24); MAGNESIUM 1.9 mg/dl (1.7-2.5); POTASSIUM 3.8 mmol/L (3.5-5.1); TOTAL PROTEIN 6.2 g/dl (6.1-8.1)
[2016-10-13] MEDS: ASPIRIN 81 MG TAB PO SCH (08:13)
[2016-10-13] MEDS: TICAGRELOR 90 MG TABLET PO SCH (08:14)
[2016-10-13] MEDS: LISINOPRIL 20 MG TAB PO SCH (08:14)
[2016-10-13] MEDS: RANOLAZINE (SR) 500 MG TAB PO SCH (08:14)
--- NOTE | 2016-10-13 08:48 | DS ---
Date/Time of Note Date/Time of Note DATE: 10/13/16 TIME: 08:48 Discharge Summary Admission/Discharge Info Admit Date/Time Oct 11, 2016 at 17:50 Discharge Date/Time Discharge Diagnosis chest pain, coronary artery disease Patient Condition: Stable Consults cardiology Procedures 8.8: C Procure performed: #1 left heart catheterization and selective right and left coronary angiogram. #2 Right femoral angiogram and closure using a perclose device 3. Successful PTCA and stenting of proximal LAD using a 4X16 mm synergy NEGAR 4. Successful PTCA of diagonal from 100% --> 0% using a 2.0x15 mm balloon 4. Moderate sedation for more than 90 minutes Findings: 1. Left main: is normal and birfurcates to LAD & LCX. 2. LAD: is large and aneurysmal. it has 80-90% stenosis at proximal LAD ( ----> 0% post PCI). and 20 % instent stenosis at mid LAD. first diagonal is small and 100% occluded ---> 0% post PTCA. 2nd and 3rd diagonal have less than 50% stenosis. 3. Left circumflex artery: is Co-dominant. it has 60-70 % stenosis at OM. It is very aneurysmal though. 4. RCA: is CO-dominant. it has diffuse disease up to 70% stenosis at mid to distal level. No significant change was noted compared to the previous angiogram or year ago. 5. LVEDP is 17 with non significant gradient across the aortic valve. Hx of Present Illness CC chest pain HPI 40 yo M with pmhx CAD sp PCI within the past 12 mos, tobacco abuse, snoring, obesity presents with 1 day of chest pain. Since presentation to the ER pt already seen by his cable rigger who stated he will be performing diagnostic angiogram in the AM as pt with recent hx of + stress test. Hospital Course Pt admitted for chest pain. Ruled out for ACS. Given recent + stress, underwent LHC by cardiology. Found to have significant disease of LAD, sp NEGAR and balloon angioplasty. Pt monitored in the ICU overnight after cath. Post procedure course uncomplicated and cleared for discharge by cardiology 8.9. Of note, pt's noted that he snored. Nocturnal pulse ox done to screen for CARINE. SO2 never <90% overnight. No changes from admit meds Pt congratulated for having stopped smoking. Home Meds Active Scripts Ticagrelor* (Brilinta*) 90 Mg Tablet, 90 MG PO BID for 30 Days, #60 TAB Prov:DONNELL GONZALES MD 09/16/15 Aspirin* (Aspirin* EC) 81 Mg Tablet.dr, 81 MG PO DAILY for 30 Days, #30 Prov:DONNELL GONZALES MD 09/16/15 Reported Medications Ranolazine* (Ranexa*) 1,000 Mg Tab.sr.12h, 1000 MG PO Q12, TAB 10/11/16 Metoprolol Succinate* (Toprol XL*) 100 Mg Tab.sr.24h, 100 MG PO QHS, #30 TAB 10/11/16 Lisinopril* (Lisinopril*) 40 Mg Tablet, 40 MG PO DAILY, #30 TAB 10/11/16 Atorvastatin* (Atorvastatin*) 40 Mg Tablet, 40 MG PO QHS, #30 TAB 10/11/16 Discontinued Scripts Nitroglycerin* (Nitrostat*) 0.4 Mg Tab.subl, 1 TAB SL Q5M Y for ANGINA for 30 Days, #30 Prov:DONNELL GONZALES MD 09/16/15 Metoprolol Tartrate* (Lopressor*) 50 Mg Tab, 100 MG PO BID for 30 Days, #60 TAB Prov:DONNELL GONZALES MD 09/16/15 Lisinopril* (Lisinopril*) 10 Mg Tablet, 10 MG PO DAILY for 30 Days, #30 TAB Prov:DONNELL GONZALES MD 09/16/15 Atorvastatin* (Atorvastatin*) 40 Mg Tablet, 40 MG PO DAILY for 30 Days, #30 TAB Prov:DONNELL GONZALES MD 09/16/15 Follow-up Plan cardiology within 10 days Primary Care Provider Not On Staff Doctor Time spent on discharge: > 30 minutes Pending Labs Laboratory Tests Test 10/12/16 10:05 10/13/16 05:01 White Blood Count 7.110^3/ul (4.8-10.8) 9.510^3/ul (4.8-10.8) Red Blood Count 4.4410^6/ul (4.70-6.10) 4.4510^6/ul (4.70-6.10) Hemoglobin 13.1g/dl (14.0-18.0) 12.8g/dl (14.0-18.0) Hematocrit 39.2% (42.0-52.0) 38.9% (42.0-52.0) Mean Corpuscular Volume 88.3fl (82.0-101.0) 87.4fl (82.0-101.0) Mean Corpuscular Hemoglobin 29.5pg (29.0-33.0) 28.8pg (29.0-33.0) Mean Corpuscular Hemoglobin Concent 33.4g/dl (32.0-37.0) 32.9g/dl (32.0-37.0) Red Cell Distribution Width 12.8% (11.5-14.5) 13.3% (11.5-14.5) Platelet Count 77557^3/UL (140-415) 15604^3/UL (140-415) Mean Platelet Volume 10.9fl (7.4-10.4) 10.9fl (7.4-10.4) Neutrophils % 62.4% (39.0-77.0) 71.4% (39.0-77.0) Lymphocytes % 27.7% (15.0-51.0) 19.4% (15.0-51.0) Monocytes % 7.9% (0.0-11.0) 7.8% (0.0-11.0) Eosinophils % 1.3% (0.0-7.0) 0.9% (0.0-7.0) Basophils % 0.1% (0.0-2.0) 0.1% (0.0-2.0) Nucleated Red Blood Cells % 0.0/100WBC (0.0-0.0) 0.0/100WBC (0.0-0.0) Neutrophils # 4.410^3/ul (1.6-7.5) 6.810^3/ul (1.6-7.5) Lymphocytes # 2.010^3/ul (0.8-2.9) 1.910^3/ul (0.8-2.9) Monocytes # 0.610^3/ul (0.3-0.9) 0.710^3/ul (0.3-0.9) Eosinophils # 0.110^3/ul (0.0-0.5) 0.110^3/ul (0.0-0.5) Basophils # 0.010^3/ul (0.0-0.1) 0.010^3/ul (0.0-0.1) Nucleated Red Blood Cells # 0.010^3/ul (0.0-0.0) 0.010^3/ul (0.0-0.0) Prothrombin Time 13.4Sec (12.2-14.2) Prothrombin Time Ratio 1.0 INR International Normalized Ratio 1.02 Sodium Level 145mmol/L (135-144) 143mmol/L (135-144) Potassium Level 4.5mmol/L (3.5-5.1) 3.8mmol/L (3.5-5.1) Chloride Level 103mmol/L (97-110) 103mmol/L (97-110) Carbon Dioxide Level 30mmol/L (21-31) 26mmol/L (21-31) Anion Gap 17 (8-16) 18 (8-16) Blood Urea Nitrogen 18mg/dl (7-20) 20mg/dl (7-20) Creatinine 0.95mg/dl (0.61-1.24) 0.88mg/dl (0.61-1.24) Glucose Level 103mg/dl (70-220) 88mg/dl (70-220) Calcium Level 9.2mg/dl (8.4-10.2) 8.9mg/dl (8.4-10.2) Magnesium Level 1.9mg/dl (1.7-2.5) 1.9mg/dl (1.7-2.5) Total Bilirubin 0.4mg/dl (0.2-1.3) 0.4mg/dl (0.2-1.3) Direct Bilirubin 0.00mg/dl (0.00-0.20) 0.00mg/dl (0.00-0.20) Indirect Bilirubin 0.4mg/dl (0-1.1) 0.4mg/dl (0-1.1) Aspartate Amino Transf (AST/SGOT) 17IU/L (15-46) 23IU/L (15-46) Alanine Aminotransferase (ALT/SGPT) 34IU/L (13-69) 39IU/L (13-69) Alkaline Phosphatase 37IU/L (42-121) 41IU/L (42-121) Creatine Kinase 63IU/L (23-200) 49IU/L (23-200) Creatine Kinase Index 0.8 Creatinine Kinase MB (Mass) 0.53ng/ml (0.0-2.4) Troponin I < 0.012ng/ml (0.00-0.12) B-Type Natriuretic Peptide 69PG/ML (0-125) Total Protein 5.9g/dl (6.1-8.1) 6.2g/dl (6.1-8.1) Albumin 3.8g/dl (3.3-4.9) 3.8g/dl (3.3-4.9) Globulin 2.10g/dl (1.3-3.2) 2.40g/dl (1.3-3.2) Albumin/Globulin Ratio 1.80 1.58 Triglycerides Level 100mg/dl (0-149) 176mg/dl (0-149) Cholesterol Level 112mg/dl (100-200) 121mg/dl (100-200) LDL Cholesterol, Calculated 60mg/dl 56mg/dl HDL Cholesterol 32mg/dl (27-67) 30mg/dl (27-67) Cholesterol/HDL Ratio 3.5RATIO 4.0RATIO Thyroid Stimulating Hormone (TSH) 1.330MIU/L (0.465-4.680) Free Thyroxine 0.97ng/dl (0.64-1.79) 0.82ng/dl (0.64-1.79) Copies To: CC: JULIENNE MITCHELL MD, ELLEN MD Oct 13, 2016 08:48
--- NOTE | 2016-10-13 08:48 | PDOCDIS ---
Discharge Instructions CONDITION Patient Condition: Stable HOME CARE INSTRUCTIONS: Special Diet: Low cholesteral, low fat FOLLOW UP/APPOINTMENTS Follow-up Plan Congratulations again on stopping smoking! Follow up with Dr Huang Office Address [id number] [address] Office CHRIS HENRY MD Oct 13, 2016 08:47
--- NOTE | 2016-10-13 08:51 | CONS ---
Date/Time of Note Date/Time of Note DATE: 10/13/16 TIME: 08:49 Consult Date/Type/Reason Admit Date/Time Oct 11, 2016 at 17:50 Initial Consult Date 10/11/16 Type of Consultation: INTERVENTIONAL CARDIOLOGY Subjective Discussed with the staff Patient with no chest pain pressure overnight. NO Groin pain or discomfort. no bleeding now. he wants to go home OBJECTIVE: General: no acute distress HEENT: NC/AT. pupils are equal. round. NECK: NO JVD. no stridor. CV: RRR. systolic murmur; no gallop or rubs. PULM: no wheezing or rhonchi. GI: SOFT, NT, ND, no rebound or guarding . obese Extremity: trace B/L LE edema. no clubbing. neuro: awake and alert, OX3. Psych: calm and pleasant rectal: deferred : normal vascular r femoral no bleeding or hematoma or bruit. Objective Vital Signs Date Time Temp Pulse Resp B/P Pulse Ox O2 Delivery O2 Flow Rate FiO2 10/13/16 08:00 63 14 117/88 99 Room Air 10/13/16 07:57 98.3 10/11/16 14:46 2 Intake and Output 10/12/16 10/12/16 10/13/16 15:00 23:00 07:00 Intake Total 200 ml 450 ml Output Total 500 ml 300 ml Balance -300 ml 150 ml Results/Medications Result Diagram: 10/13/16 0501 10/13/16 0501 Results 24 hrs Laboratory Tests Test 10/12/16 10:05 10/13/16 05:01 White Blood Count 7.1 9.5 # Red Blood Count 4.44 L 4.45 L Hemoglobin 13.1 L 12.8 L Hematocrit 39.2 L 38.9 L Mean Corpuscular Volume 88.3 87.4 Mean Corpuscular Hemoglobin 29.5 28.8 L Mean Corpuscular Hemoglobin Concent 33.4 32.9 Red Cell Distribution Width 12.8 13.3 Platelet Count 179 171 Mean Platelet Volume 10.9 H 10.9 H Neutrophils % 62.4 71.4 Lymphocytes % 27.7 19.4 Monocytes % 7.9 7.8 Eosinophils % 1.3 0.9 Basophils % 0.1 0.1 Nucleated Red Blood Cells % 0.0 0.0 Neutrophils # 4.4 6.8 Lymphocytes # 2.0 1.9 Monocytes # 0.6 0.7 Eosinophils # 0.1 0.1 Basophils # 0.0 0.0 Nucleated Red Blood Cells # 0.0 0.0 Prothrombin Time 13.4 Prothrombin Time Ratio 1.0 INR International Normalized Ratio 1.02 Sodium Level 145 H 143 Potassium Level 4.5 3.8 Chloride Level 103 103 Carbon Dioxide Level 30 26 Anion Gap 17 H 18 H Blood Urea Nitrogen 18 20 Creatinine 0.95 0.88 Glucose Level 103 88 Calcium Level 9.2 8.9 Magnesium Level 1.9 1.9 Total Bilirubin 0.4 0.4 Direct Bilirubin 0.00 0.00 Indirect Bilirubin 0.4 0.4 Aspartate Amino Transf (AST/SGOT) 17 23 Alanine Aminotransferase (ALT/SGPT) 34 39 Alkaline Phosphatase 37 L 41 L Creatine Kinase 63 49 Creatine Kinase Index 0.8 Creatinine Kinase MB (Mass) 0.53 Troponin I < 0.012 B-Type Natriuretic Peptide 69 Total Protein 5.9 L 6.2 Albumin 3.8 3.8 Globulin 2.10 2.40 Albumin/Globulin Ratio 1.80 1.58 Triglycerides Level 100 176 H Cholesterol Level 112 121 LDL Cholesterol, Calculated 60 56 HDL Cholesterol 32 30 Cholesterol/HDL Ratio 3.5 4.0 Thyroid Stimulating Hormone (TSH) 1.330 Free Thyroxine 0.97 0.82 Medications Current Medications Aspirin (Aspirin) 81 mg DAILY PO Last administered on 10/13/16 08:13; Admin Dose 81 MG; Start 10/12/16 at 09:00 Acetaminophen (Tylenol Tab) 650 mg Q6H PRN PO PAIN LEVEL 1-3 OR FEVER; Start at 18:30 Acetaminophen/ Hydrocodone Bitart ([place] (5/325)) 1 tab Q6H PRN PO PAIN LEVEL 4 -6 Last administered on 10/12/16 21:07; Admin Dose 1 TAB; Start 10/11/16 at 18:30 Morphine Sulfate (morphine) 2 mg Q4H PRN IV PAIN LEVEL 7-10; Start 10/11/16 at 18:30 Docusate Sodium (Colace) 100 mg Q12H PRN PO CONSTIPATION; Start 10/11/16 at 18: 30 Magnesium Hydroxide (Milk Of Mag) 30 ml DAILY PRN PO CONSTIPATION; Start at 18:30 Bisacodyl (Dulcolax) 5 mg DAILY PRN PO CONSTIPATION; Start 10/11/16 at 18:30 Enoxaparin Sodium (Lovenox) 40 mg DAILY SC ; Start 10/12/16 at 09:00 Atorvastatin Calcium (Lipitor) 40 mg QHS PO Last administered on 10/12/16 21:16 ; Admin Dose 40 MG; Start 10/11/16 at 21:00 Lisinopril (Zestril) 40 mg DAILY PO Last administered on 10/13/16 08:14; Admin Dose 40 MG; Start 10/12/16 at 09:00 Metoprolol Succinate (Toprol Xl) 100 mg QHS PO Last administered on 10/12/16 21 :16; Admin Dose 100 MG; Start 10/11/16 at 21:00 Ranolazine (Ranexa) 1,000 mg Q12 PO Last administered on 10/13/16 08:14; Admin Dose 1,000 MG; Start 10/11/16 at 21:00 Ticagrelor (Brilinta) 90 mg BID PO Last administered on 10/13/16 08:14; Admin Dose 90 MG; Start 10/11/16 at 21:00 Assessment/Plan Chief Complaint/Hosp Course 1. ACS: S/P PCI LAD, PTCA diagonal 2. HTN 3. CAD 4. HX PCI LAD 5. Known multivessel CAD and abnormal stress test but now with recurrent angina 6. dyslipidemia 7.smoker 8. obesity Recommendations: Continue current medication including aspirin and Brilinta statin and beta- blockers. dc planning today STOP SMOKING follow up with me in office in 1-2 weeks Thank you. Problems: JULIENNE MITCHELL MD Oct 13, 2016 08:51
[2016-10-13] MEDS: ENOXAPARIN 40 MG/0.4 ML SYG SC SCH (08:53)
== END 2016-10-13 11:00 | disposition home or self-care (01) | DRG 247 ==
LOC: E/R 13:59 → TEL 17:50 → ICU 10-12 23:20
PROVIDERS: ADMIT Internal Medicine; ATTEND Internal Medicine
PROC: 4A023N7 Measurement of Cardiac Sampling and Pressure, Left Heart, Percutaneous Approach (ICD-10-PCS; 2016-10-12)
PROC: B211YZZ Fluoroscopy of Multiple Coronary Arteries using Other Contrast (ICD-10-PCS; 2016-10-12)
PROC: 027034Z Dilation of Coronary Artery, One Artery with Drug-eluting Intraluminal Device, Percutaneous Approach (ICD-10-PCS; principal; 2016-10-12 12:30)
PROC: 02703ZZ Dilation of Coronary Artery, One Artery, Percutaneous Approach (ICD-10-PCS; 2016-10-12 12:30)
DX: I25.119 Atherosclerotic heart disease of native coronary artery with unspecified angina pectoris (principal); I24.9 Acute ischemic heart disease, unspecified; I25.82 Chronic total occlusion of coronary artery; E78.5 Hyperlipidemia, unspecified; I10 Essential (primary) hypertension; F17.200 Nicotine dependence, unspecified, uncomplicated; E66.9 Obesity, unspecified; Z68.38 Body mass index [BMI] 38.0-38.9, adult; Z79.82 Long term (current) use of aspirin
CPT/HCPCS: 71010; 80048; 80053; 80061; 82550; 82553; 83036; 83735; 83880; 84439; 84443; 84484; 85025; 85610; 85730; 87081; 93005; 93306; 93458; C1725; C1760; C1769; C1874; C1887; C1894; C9600; J0583; J1644; J2250; J3010; J7042; Q9967

== ENCOUNTER 2017-03-23 16:02 | Emergency (ER) | END 2017-03-23 19:53 | disposition home or self-care (01) ==